=== PATIENT | male | born 2000 ===

== ENCOUNTER 2024-05-04 20:51 | Emergency (ER) | payer OTHER ==
[2024-05-04] MEDS: Ketorolac 30 MG/ML SDV IM ONE (22:21)
== END 2024-05-04 23:07 | disposition home or self-care (01) ==
LOC: DL.ED 20:51
DX: R07.1 Chest pain on breathing (principal); F17.290 Nicotine dependence, other tobacco product, uncomplicated
CPT/HCPCS: 71045; 96372; 99285; J1885